=== PATIENT | male | born 1965 | race Caucasian/White ===

== ENCOUNTER 2017-07-23 13:58 | Inpatient (IN) | payer BC, OTHER ==
[~2017-07-23] VITALS: Ht 160 cm; Wt 68.0 kg
[2017-07-23] MEDS ORDERED: LOPERAMIDE HCL 2 MG CAPSULE PO PRN ×2 (21:45)
[2017-07-23] MEDS ORDERED: LORAZEPAM 2 MG/1 ML VIAL IM PRN (21:45)
[2017-07-23] MEDS ORDERED: THIAMINE HCL 200 MG/2 ML VIAL IM ONE (21:45)
[2017-07-23] MEDS ORDERED: NICOTINE POLACRILEX 4 MG GUM-PK OF TEN BC PRN (21:45)
[2017-07-23] MEDS ORDERED: MAGNESIUM HYDROXIDE 30 ML LIQUID UDC PO PRN (21:45)
[2017-07-23] MEDS ORDERED: LORAZEPAM 1 MG TABLET PO PRN ×2 (21:45)
[2017-07-23] MEDS ORDERED: MIRALAX 17 GM POWD.PACK PO PRN (21:45)
[2017-07-23] MEDS ORDERED: ONDANSETRON ODT 4 MG TAB.RAPDIS SL PRN (21:45)
[2017-07-23] MEDS ORDERED: NICOTINE 14 MG/24HR PATCH TD PRN (21:45)
[2017-07-23] MEDS ORDERED: ACETAMINOPHEN 325 MG TABLET PO PRN (21:45)
[2017-07-23] MEDS ORDERED: ONDANSETRON 4 MG/2 ML VIAL IM PRN (21:45)
[2017-07-23 22:10] VITALS: BP 108/76
[2017-07-23 22:14] LABS: BASOPHILS % (AUTO) 0.6 % (0.0-2.0); EOSINOPHILS # (AUTO) 0.1 K/uL (0.0-0.7); EOSINOPHILS % (AUTO) 2.2 % (0.0-7.0); HEMATOCRIT 41.9 % (36.7-47.1); HEMOGLOBIN 14.4 g/dL (12.5-16.3); LYMPHOCYTES # (AUTO) 3.1 K/uL (20.0-40.0); MEAN CORPUSCULAR HGB CONC 35 g/dL (32.5-36.3); MEAN CORPUSCULAR VOLUME 95.7 fL (73.0-96.2); MONOCYTES # (AUTO) 0.5 K/uL (2.0-10.0); MONOCYTES % (AUTO) 9.7 % (0.0-11.0); NEUTROPHILS # (AUTO) 1.8 K/uL (1.8-8.9); NEUTROPHILS % (AUTO) 31.5 % (38.5-71.5); PLATELET COUNT (AUTO) 277 K/uL (152-348); RED BLOOD CELL COUNT(AUTO) 4.38 MIL/uL (4.06-5.63); WHITE BLOOD COUNT (AUTO) 5.6 K/uL (3.6-10.2)
[2017-07-23 22:20] LABS: *AMPHETAMINE, URINE NEGATIVE (NEGATIVE); *BARBITURATE, URINE NEGATIVE (NEGATIVE); *CANNABINOID, URINE NEGATIVE (NEGATIVE); *COCCAINE, URINE POSITIVE (NEGATIVE); *OPIATE, URINE NEGATIVE (NEGATIVE); *PHENCYCLIDINE SCREEN,URINE NEGATIVE (NEGATIVE)
[2017-07-23 22:32] LABS: BILIRUBIN,TOTAL 0.4 mg/dL (0.2-1.0); CREATININE 1.1 mg/dL (0.6-1.3); MAGNESIUM 2.3 mg/dL (1.8-2.4); POTASSIUM 3.4 mmol/L (3.5-5.1); TOTAL PROTEIN, SERUM 7.6 g/dL (6.4-8.2)
[2017-07-23] MEDS ORDERED: LORAZEPAM 1 MG TABLET PO SCH (23:00)
[2017-07-23] MEDS ORDERED: POTASSIUM CHLORIDE 20 MEQ TAB.PRT.SR PO ONE (23:00)
[2017-07-23] MEDS: diphenhydrAMINE 50 MG CAPSULE PO PRN (23:04)
[2017-07-24 04:00] VITALS: BP 124/79
[2017-07-24 08:00] VITALS: BP 141/96
[2017-07-24] MEDS: LORAZEPAM 1 MG TABLET PO SCH ×3 (08:22→20:17)
[2017-07-24] MEDS: hydrALAZINE HCL 50 MG TABLET PO PRN ×2 (08:22→19:47)
[2017-07-24] MEDS: MULTIVITAMINS,THERAPEUTIC TABLET PO SCH (08:22)
[2017-07-24] MEDS: THIAMINE HCL 100 MG TABLET PO SCH (08:22)
[2017-07-24] MEDS: FOLIC ACID 1 MG TABLET PO SCH (08:22)
[2017-07-24] MEDS ORDERED: TUBERCULIN,PURIF.PROT.DERIV. 5 TU/0.1 ML TEST ID ONE (09:00)
[2017-07-24] MEDS: RANITIDINE 150MG PO PRN (09:31)
[2017-07-24 12:00] VITALS: BP 121/79
[2017-07-24 16:00] VITALS: BP 138/88
[2017-07-24 19:45] VITALS: BP 159/95
[2017-07-24] MEDS: DOXEPIN 25 MG CAPSULE PO SCH (20:17)
[2017-07-24 20:50] VITALS: BP 111/61
[2017-07-25] VITALS (9 sets, daily range): BP systolic 121–166; BP diastolic 78–105
[2017-07-25] MEDS ORDERED: AMLO5TAB2 PO (07:58)
[2017-07-25] MEDS ORDERED: LOSA50TA21 PO (07:58)
[2017-07-25] MEDS ORDERED: RANI150C4 PO (07:58)
[2017-07-25] MEDS ORDERED: NICO4GUM9 BC (07:58)
[2017-07-25] MEDS ORDERED: FLUT15.88 NS (07:58)
[2017-07-25] MEDS: LORAZEPAM 1 MG TABLET PO SCH ×2 (08:05→12:47)
[2017-07-25] MEDS: FOLIC ACID 1 MG TABLET PO SCH (08:06)
[2017-07-25] MEDS: MULTIVITAMINS,THERAPEUTIC TABLET PO SCH (08:07)
[2017-07-25] MEDS: THIAMINE HCL 100 MG TABLET PO SCH (08:08)
[2017-07-25 09:50] LABS: BILIRUBIN,DIRECT 0.2 mg/dL (0.0-0.2); BILIRUBIN,TOTAL 1.2 mg/dL (0.2-1.0); CREATININE 0.9 mg/dL (0.6-1.3); MAGNESIUM 2.1 mg/dL (1.8-2.4); POTASSIUM 3.3 mmol/L (3.5-5.1); TOTAL PROTEIN, SERUM 7.2 g/dL (6.4-8.2)
[2017-07-25 12:06] LABS: HEPATITIS B SURFACE AG Negative (Negative)
[2017-07-25] MEDS: hydrALAZINE HCL 50 MG TABLET PO PRN (12:48)
[2017-07-25] MEDS: RANITIDINE 150MG PO PRN (15:15)
[2017-07-25] MEDS: MAG HYDROX/AL HYDROX/SIMETH 30 ML LIQUID UDC PO PRN (15:15)
[2017-07-25] MEDS ORDERED: LORAZEPAM 1 MG TABLET PO SCH ×2 (17:00→21:00)
[2017-07-25] MEDS ORDERED: POTASSIUM CHLORIDE 10 MEQ TAB.PRT.SR PO ONE (17:00)
[2017-07-25] MEDS: DOXEPIN 25 MG CAPSULE PO SCH (20:39)
[2017-07-25] MEDS: diphenhydrAMINE 50 MG CAPSULE PO PRN (20:39)
[2017-07-25] MEDS ORDERED: AMLODIPINE 5 MG TABLET PO SCH (21:00)
[2017-07-26] VITALS: BP 143/86
[2017-07-26 04:00] VITALS: BP 133/91
[2017-07-26] MEDS: FOLIC ACID 1 MG TABLET PO SCH (08:16)
[2017-07-26] MEDS: THIAMINE HCL 100 MG TABLET PO SCH (08:16)
[2017-07-26] MEDS: LORAZEPAM 1 MG TABLET PO SCH ×3 (08:16→20:06)
[2017-07-26] MEDS: MULTIVITAMINS,THERAPEUTIC TABLET PO SCH (08:16)
[2017-07-26] MEDS: AMLODIPINE 5 MG PO SCH (08:16)
[2017-07-26] MEDS: IBUPROFEN 400 MG TABLET PO PRN (08:25)
[2017-07-26 08:27] VITALS: BP 135/84
[2017-07-26 12:00] VITALS: BP 149/99
[2017-07-26 16:00] VITALS: BP 147/95
[2017-07-26 20:00] VITALS: BP 137/93
[2017-07-26] MEDS: RANITIDINE 150MG PO PRN (20:05)
[2017-07-26] MEDS: MAG HYDROX/AL HYDROX/SIMETH 30 ML LIQUID UDC PO PRN (20:05)
[2017-07-26] MEDS: DOXEPIN 25 MG CAPSULE PO SCH (20:06)
[2017-07-26] MEDS: diphenhydrAMINE 50 MG CAPSULE PO PRN (20:09)
[2017-07-27] MEDS: IBUPROFEN 400 MG TABLET PO PRN (03:21)
[2017-07-27 08:00] VITALS: BP 166/104
[2017-07-27] MEDS: LORAZEPAM 1 MG TABLET PO SCH ×2 (08:49→20:24)
[2017-07-27] MEDS: MULTIVITAMINS,THERAPEUTIC TABLET PO SCH (08:49)
[2017-07-27] MEDS: THIAMINE HCL 100 MG TABLET PO SCH (08:49)
[2017-07-27] MEDS: FOLIC ACID 1 MG TABLET PO SCH (08:49)
[2017-07-27] MEDS: AMLODIPINE 5 MG PO SCH (08:53)
[2017-07-27] MEDS ORDERED: NORMAL SALINE NASAL 45 ML BOTTLE NS PRN (11:00)
[2017-07-27] MEDS ORDERED: LORATADINE 10 MG TABLET PO PRN (11:00)
[2017-07-27] MEDS ORDERED: HYDROXYZINE PAMOATE 25 MG CAPSULE PO PRN (11:00)
[2017-07-27 12:00] VITALS: BP 137/96
[2017-07-27] MEDS: RANITIDINE 150MG PO PRN (12:18)
[2017-07-27] MEDS: MAG HYDROX/AL HYDROX/SIMETH 30 ML LIQUID UDC PO PRN (12:18)
[2017-07-27 16:00] VITALS: BP_SYST 151; BP_SYST 161; BP_DIAS 101; BP_DIAS 112
[2017-07-27] MEDS: hydrALAZINE HCL 50 MG TABLET PO PRN (16:59)
[2017-07-27 18:29] VITALS: BP 142/92
[2017-07-27] MEDS ORDERED: LABETALOL HCL 100 MG TABLET PO ONE (19:15)
[2017-07-27 20:00] VITALS: BP 129/92
[2017-07-27] MEDS: DOXEPIN 25 MG CAPSULE PO SCH (20:24)
[2017-07-27] MEDS: PROPRANOLOL HCL 20 MG TABLET PO SCH (20:24)
[2017-07-27] MEDS: diphenhydrAMINE 50 MG CAPSULE PO PRN (20:24)
[2017-07-27] MEDS ORDERED: LOSARTAN POTASSIUM 50 MG TABLET PO SCH (21:00)
[2017-07-28] VITALS: BP 116/83
[2017-07-28 04:00] VITALS: BP 118/80
[2017-07-28 08:00] VITALS: BP 128/95
[2017-07-28] MEDS ORDERED: LORAZEPAM 1 MG TABLET PO SCH (09:00)
[2017-07-28] MEDS: FOLIC ACID 1 MG TABLET PO SCH (09:13)
[2017-07-28] MEDS: PROPRANOLOL HCL 20 MG TABLET PO SCH ×2 (09:13→20:08)
[2017-07-28] MEDS: MULTIVITAMINS,THERAPEUTIC TABLET PO SCH (09:13)
[2017-07-28] MEDS: THIAMINE HCL 100 MG TABLET PO SCH (09:13)
[2017-07-28] MEDS: RANITIDINE 150MG PO PRN (09:14)
[2017-07-28] MEDS: AMLODIPINE 5 MG PO SCH (09:14)
[2017-07-28] MEDS: PATIENT MAY USE OWN MED- MD OK PO SCH (09:14)
[2017-07-28 12:00] VITALS: BP 147/99
[2017-07-28 17:00] VITALS: BP 131/77
[2017-07-28] MEDS ORDERED: HYDR-3895 PO (17:47)
[2017-07-28] MEDS ORDERED: DIPH50CA37 PO (17:47)
[2017-07-28] MEDS ORDERED: PROP20TA19 PO (17:47)
[2017-07-28] MEDS ORDERED: AMLO5TAB2 PO (17:47)
[2017-07-28] MEDS ORDERED: DOXE25CA18 PO (17:47)
[2017-07-28] MEDS ORDERED: LOSA50TA21 PO (17:47)
[2017-07-28] MEDS ORDERED: NICO4GUM38 BC (17:47)
[2017-07-28 20:00] VITALS: BP 135/93
[2017-07-28] MEDS: DOXEPIN 25 MG CAPSULE PO SCH (20:08)
[2017-07-28] MEDS: diphenhydrAMINE 50 MG CAPSULE PO PRN (20:08)
[2017-07-29] VITALS: BP 132/81
[2017-07-29 04:00] VITALS: BP 141/86
[2017-07-29 08:00] VITALS: BP 165/106
[2017-07-29] MEDS: MULTIVITAMINS,THERAPEUTIC TABLET PO SCH (08:14)
[2017-07-29] MEDS: THIAMINE HCL 100 MG TABLET PO SCH (08:14)
[2017-07-29] MEDS: PROPRANOLOL HCL 20 MG TABLET PO SCH (08:14)
[2017-07-29] MEDS: FOLIC ACID 1 MG TABLET PO SCH (08:14)
[2017-07-29 08:15] VITALS: BP 138/88
[2017-07-29] MEDS: PATIENT MAY USE OWN MED- MD OK PO SCH (08:15)
[2017-07-29] MEDS: AMLODIPINE 5 MG PO SCH (08:15)
[2017-07-29] MEDS: IBUPROFEN 400 MG TABLET PO PRN (08:56)
== END 2017-07-29 09:25 | disposition other institution (70) | DRG 895 ==
LOC: SRC 21:05
PROVIDERS: ADMIT Internal Medicine; ATTEND Internal Medicine
PROC: HZ2ZZZZ Detoxification Services for Substance Abuse Treatment (ICD-10-PCS; principal; 2017-07-23)
PROC: HZ41ZZZ Group Counseling for Substance Abuse Treatment, Behavioral (ICD-10-PCS; 2017-07-24)
PROC: HZ31ZZZ Individual Counseling for Substance Abuse Treatment, Behavioral (ICD-10-PCS; 2017-07-25)
DX: F10.230 Alcohol dependence with withdrawal, uncomplicated (principal); I15.9 Secondary hypertension, unspecified; K70.10 Alcoholic hepatitis without ascites; F14.20 Cocaine dependence, uncomplicated; G47.00 Insomnia, unspecified; F17.210 Nicotine dependence, cigarettes, uncomplicated; Y90.3 Blood alcohol level of 60-79 mg/100 ml; K21.9 Gastro-esophageal reflux disease without esophagitis; Z81.1 Family history of alcohol abuse and dependence; E87.6 Hypokalemia; E86.0 Dehydration; Z82.49 Family history of ischemic heart disease and other diseases of the circulatory system; B19.20 Unspecified viral hepatitis C without hepatic coma; R73.9 Hyperglycemia, unspecified
CPT/HCPCS: 36415; 70030-TC; 80307; 80353; 83735; 85025; 86592; 86705; 86803; 87340; 87806; G0480; J3411; Q0163